=== PATIENT | male | born 1955 | race Caucasian/White ===

== ENCOUNTER 2019-07-09 17:05 | Observation (INO) ==
[2019-07-09] MEDS ORDERED: NS 1,000 ML IV ONE (17:57)
[2019-07-09] MEDS ORDERED: ASPIRIN PO ONE (17:57)
--- NOTE | 2019-07-09 18:06 | Diag Imaging Result Doc PS360 ---
EXAM: CT HEAD W/O CONTRAST INDICATION: stroke like symptoms TECHNIQUE: This exam was performed using automated exposure control, adjustment of mA or kV according to patient size, and/or use of iterative reconstruction technique. COMPARISON: None. FINDINGS: There is patchy low attenuation in the periventricular and subcortical white matter suggesting moderate microangiopathy most likely. There is no definite acute infarct given the limited sensitivity of CT versus MRI. There is no discrete intracranial mass, mass effect, or intracranial hemorrhage. The surrounding soft tissues and bony structures are essentially unremarkable. IMPRESSION: Suggestion of moderate white matter microangiopathy. No definite acute intracranial pathology by CT. Electronically signed by Abel Alfred 07/09/2019 6:03 PM
[2019-07-09] MEDS ORDERED: TYLENOL PO PRN (18:23)
[2019-07-09] MEDS ORDERED: ZOFRAN IV PRN (18:23)
[2019-07-09] MEDS ORDERED: NS 1,000 ML IV SCH (18:30)
[2019-07-09 18:44] LABS: URINE SOURCE CLEAN CATCH
--- NOTE | 2019-07-09 18:45 | PROVIDER DOCUMENTATION ---
This chart was entered by Vangie Hunt Scribe, acting as scribe for Krishna Blank MD. HPI-General Adult - General Chief Complaint: Numbness Stated Complaint: LEFT ARM, FACIAL NUMBNESS Time Seen by Provider: 07/09/19 17:21 Source: patient Allergies/Adverse Reactions: Patient Allergies Allergy/AdvReac Type Severity Reaction Status Date / Time No Known Allergies Allergy Verified 06/08/16 13:32 Home Medications: Home Medication List Medication Instructions Recorded Confirmed Last Taken Type Albuterol Sulfate [Proair Hfa] 1 puff PO PRN PRN 06/08/16 07/09/19 06/09/16 07:00 History Atorvastatin Calcium [Lipitor] 20 mg PO HS 06/08/16 07/09/19 06/09/16 20:00 History Fluticasone/Salmeterol [Advair 1 each IH BID 06/08/16 07/09/19 06/09/16 20:30 History 500-50 Diskus] Lisinopril 10 mg PO DAILY 06/08/16 07/09/19 06/09/16 08:00 History Omeprazole [Prilosec] 40 mg PO HS 06/08/16 07/09/19 06/08/16 20:00 History Ropinirole [Requip] 0.25 mg PO HS 06/08/16 07/09/19 06/09/16 20:00 History Tizanidine HCl [Zanaflex] 4 mg PO HS 06/08/16 07/09/19 06/09/16 20:00 History - History of Present Illness -Gen Adult Nature of Presenting Problems: pt is a 63 yr old female presenting with complaint of improved numbness/tingling to left arm, left face, pt reports onset last night with tingling to left arm, left hand, progressed to numbness of left arm and hand and tingling numbness to left face, pt reports tingling and loss of taste to left tongue. pt reports all numbness has resolved but tingling remains to left side of tongue and left arm/hand. pt denies any chest pain, shortness of breath, no headache or other complaints Location of Pain/Injury: reports: face (left face), upper extremity (left arm) Pain Radiation: reports: no radiation Quality of Pain: reports: other (tingling) Severity: reports: moderate Timing: reports: improving Context/Activities at Onset: reports: light activity Modifying Factors: improves with: nothing Associated Symptoms: denies: back/neck pain, chest pain, dizziness, fever/chills, headaches, nausea, shortness of breath, weakness, trouble walking Similar Symptoms Previously?: No Recently seen or treated by another doctor?: No Review of Systems - Adult - REVIEW OF SYSTEMS - ADULT Constitutional: reports: no symptoms reported Eyes: denies: blurred vision, double vision Ears, Nose, Mouth & Throat: reports: no symptoms reported Cardiovascular: denies: chest pain, palpitations, syncope Respiratory: denies: cough, shortness of breath Gastrointestinal: denies: abdominal pain, nausea, vomiting Genitourinary: reports: no symptoms reported Musculoskeletal: denies: back pain, joint pain, neck pain Integumentary: reports: no symptoms reported Neurological: reports: numbness (left arm/hand, left face, tongue). denies: dizziness/vertigo, headache/migraines, slurred speech Psychiatric: reports: no symptoms reported Endocrine: reports: no symptoms reported Hematologic/Lymphatic: reports: no symptoms reported Allergic/Immunologic: reports: no symptoms reported All Other Systems: Reviewed and Negative Past History - Adult - PAST MEDICAL HISTORY-ADULT Review of Records: reports: Old Records Reviewed, Nursing Assessment Review, Medications Reviewed, Social history reviewed & non-contributory. Major Childhood Illnesses: reports: denies history Cardiovascular: reports: denies history Respiratory: reports: denies history Gastrointestinal: reports: denies history Obstetrical/Gynecological: reports: denies history Genitourinary: reports: denies history Musculoskeletal: reports: denies history Neurological: reports: denies history Endocrine/Immune: reports: denies history Other Conditions: reports: denies history - IMMUNIZATION STATUS Childhood Immunizations: See Nurse Assessment Flu Vaccine: See Nurse Assessment - FAMILY HISTORY Family History: reviewed, not pertinent - SOCIAL HISTORY Smoking: quit greater than 1 year Substance Use: denies Living Situation: family Physical Exam-General - PHYSICAL EXAM-ADULT Initial Vital Signs Reviewed: Yes - CONSTITUTIONAL General Appearance: appears well, alert, no apparent distress - EYES Eyes: PERRL/EOMI - HEAD, EARS, NOSE, MOUTH & THROAT HENMT: normocephalic/atraumatic, moist mucous membranes, normal ENT inspection, pharynx normal - NECK Neck: non-tender, full range of motion, supple, normal inspection - RESPIRATORY Respiratory: chest non-tender, lungs clear, normal breath sounds, no respiratory distress, no accessory muscle use - CARDIOVASCULAR Cardiovascular: normal peripheral pulses, regular rate, rhythm, no edema - GASTROINTESTINAL (ABDOMEN) Abdominal Exam: normal bowel sounds, non tender, soft - LYMPHATIC Lymphatic: no adenopathy - MUSCULOSKELETAL Back Exam: normal inspection, no CVA tenderness, no vertebral tenderness Extremity: normal range of motion, non-tender, normal gait, normal inspection - SKIN Integumentary: normal color, normal turgor, warm/dry - NEUROLOGIC Neurologic: grossly normal, no motor/sensory deficits. negative: facial droop, focal weakness, motor weakness, sensory deficit - PSYCHIATRIC Psych/Mental Status: normal mood/affect Progress - PLAN OF CARE/RESULTS Progress/Plan/Lab Results: Vital Signs - 8 hr 07/09/19 17:12 Temperature 97.1 F L Pulse Rate 68 Respiratory Rate 16 Blood Pressure 138/75 O2 Sat by Pulse Oximetry 96 Orders Category Date Time Status CT HEAD W/O CONTRAST [CT] Stat Exams 07/09/19 17:21 Taken - EKG 1 Time of EKG reading by physician:: 18:36 EKG Read and Signed by:: Krishna Blank EKG Interpretation (*Must complete 3 of following elements*): Abnormal (t wave abnormality-consider lateral ischemia) Rate: 61 Rhythm: sinus with fusion complexes [place]: normal QRS: other (fusion complexes) ID Interval: normal - CT/MRI 1 CT Study: Head Impression: Abnormal (Department of Imaging Patient: TOM OHARAADM Date: 07/09/19#: [id number] : 5ADM Status: [facility]#: [id number] Age/Sex: 63/MRoom/Bed: Loc: P.ED Ordering Physician: Krishna Blank MD Family Physician: Everardo Camacho MD Reason for Procedure: stroke like symptoms Signed EXAM: CT HEAD W/O CONTRAST INDICATION: stroke like symptoms TECHNIQUE: This exam was performed using automated exposure control, adjustment of mA or kV according to patient size, and/or use of iterative reconstruction technique. COMPARISON: None. FINDINGS: There is patchy low attenuation in the periventricular and subcortical white matter suggesting moderate microangiopathy most likely. There is no definite acute infarct given the limited sensitivity of CT versus MRI. There is no discrete intracranial mass, mass effect, or intracranial hemorrhage. The surrounding soft tissues and bony structures are essentially unremarkable. IMPRESSION: Suggestion of moderate white matter microangiopathy. No definite acute intracranial pathology by CT. Electronically signed by Tom Alfred 07/09/2019 6:03 PM 07/09/191802 Interpreting Physician: Tom Alfred MD Dictated Date/Time: 07/09/191801 cc: Krishna Blank MD; Everardo Camacho MD) Comparison with other Films: no prior study - CONSULTS/PCP/HOSPITALIST Notification #1 *Consult/PCP/Hospitalist*: DR CAMACHO Time Discussed: 18:05 Consult Disposition: Admit Departure - Departure Date of Disposition Decision: 07/09/19 Time of Disposition Decision: 18:44 DIAGNOSIS: Ischemic stroke Disposition: ADMITTED INPATIENT 09 Certified Medical Emergency: Emergent Condition: Stable Referrals and Follow-Ups: Everardo Camacho MD [Primary Care Provider] - - Critical Care Note This patient required my direct & personal management of CC.: No Attestation - Physician/ FROYLAN Attestation Patient care was provided by Advanced Practice Provider:: No The physician spent face to face time with patient:: Yes Advanced Practice Provider documentation review:: Supervising physician onsite and consulted in the evaluation and care of this patient. The physician did have a face to face encounter with the patient. - NIH Stroke Scale NIH Type: Initial Evaluation Level of Consciousness: 0-Alert LOC Questions (ask month and age): 0-Answers Both Correctly LOC Commands (ask to open & close eyes;make a fist, let go): 0-Obeys Both Correctly Best Gaze (horizontal eye movement): 0-Normal Visual (use finger movement, counting or visual threat): 0-No Visual Loss Facial Palsy (show teeth or raise eyebrows & close eyes tght: 0-Symmetrical Movement Motor Function-left arm: 0-Normal Motor Function-right arm: 0-Normal Motor Function-left le-Normal Motor Function-right le-Normal Limb Ataxia(zonkbb-[id number]-kptnzb, or heel to [place]ile): 1-Present in one limb Sensory(pin prick to face,arms,trunk,legs-compare side/side): 1-Mild to Moderate Decrease in Sensation Best Language(name item/read sentence.Ex-Down to Earth): 0-No Aphasia Dysarthria(Pt read words or say words Ex.Mama,Tip-Top,Thanks: 0-Normal Articulation Extinction and Inattention: 0-Normal NIH Scale Untestable Comment: 1 Modified Kimball Score Criteria: 1-no significant disability despite symptoms This chart was documented by the indicated scribe, (Vangie Hunt, Scribe) and accurately reflects the services I performed and decisions made by me, Krishna Blank MD, as attested by the provider's signature.
[2019-07-09 18:46] LABS: BILIRUBIN URINE NEGATIVE (NEGATIVE); BLOOD URINE NEGATIVE (NEGATIVE); COLOR YELLOW; GLUCOSE URINE NEGATIVE (NEGATIVE); KETONE URINE NEGATIVE (NEGATIVE); LEUKOCYTES URINE NEGATIVE (NEGATIVE); NITRITE URINE NEGATIVE (NEGATIVE); PROTEIN URINE TRACE mg/dL (NEGATIVE); SP GRAVITY URINE 1.028; TURBIDITY URINE CLEAR (CLEAR); UROBILINOGEN URINE 2 mg/dL (NORMAL)
[2019-07-09 18:48] LABS: BASO# 0.03 X1000 (0.0-0.2); BASO% 0.4 % (0.0-0.8); EOS# 0.24 X1000 (0.0-0.7); HEMATOCRIT 39.3 % (42.0-52.0); HEMOGLOBIN 12.4 g/dL (14.0-18.0); IMM GRAN# 0.04 X1000 (0.0-0.04); IMM GRAN% 0.5 % (0.0-0.5); LYMPH# 2.26 X1000 (1.2-3.4); LYMPH% 28.4 % (20.5-51.1); MCH 29.6 PG (27-31); MCHC 31.6 g/dL (33-37); MCV 93.8 FL (81-99); MONO# 0.54 X1000 (0.11-0.59); MONO% 6.8 % (1.7-9.3); MPV 9.9 FL (7.4-10.4); NEUT# 4.85 X1000 (1.4-6.5); NEUT% 60.9 % (42.2-75.2); PLT 303 X1000 (130-400); RBC 4.19 XMIL (4.7-6.1); RDW 13.5 % (11.5-14.5); UR EPITHELIAL CELLS <10 /HPF (<10); URINE BACTERIA NEGATIVE /HPF; URINE RBC <10 /HPF (<10); URINE WBC <10 /HPF (<10); WBC 7.96 X1000 (4.8-10.8)
--- NOTE | 2019-07-09 18:56 | HISTORY AND PHYSICAL ---
CHIEF COMPLAINT: Facial numbness. HISTORY OF PRESENT ILLNESS: Patient presented to the hospital complaining of left face numbness, left tongue tingling. States he is having some weakness and numbness in his left arm. All these symptoms started over 18 hours ago. His symptoms were worsening today and he came to the ER, although currently his symptoms are slightly improved. Denies any headaches, blurred vision. Denies any other focal weakness. Denies any confusion. ALLERGIES: No known drug allergies. MEDICATIONS: 1. Albuterol. 2. Lipitor 20. 3. Advair. 4. [place]. 5. Lisinopril 10. 6. Omeprazole 40. 7. Requip. 8. Hydrocodone. REVIEW OF SYSTEMS: As noted above, numbness to his left side of his face, tingling in left tip of his tongue. He did feel as though her earlier he had some speech slurring, although feels like it is back to normal now. He is having some tingling in the left side of his arm. Denies any symptoms in his left leg or in his right upper or lower extremities. Denies headaches, blurred vision, change in vision. Denies any confusion or disorientation. Denies any chest pain or palpitations. Denies any fevers, chills, cough, congestion. Denies any confusion. PAST MEDICAL HISTORY: Significant for hypertension, chronic pain, high cholesterol, COPD, restless leg. FAMILY HISTORY: Positive for high blood pressure. SOCIAL HISTORY: Patient no longer smokes. Did have a longstanding history of smoking. Does not drink or use illicit substances. PHYSICAL EXAMINATION: VITAL SIGNS: Reviewed. He is awake, alert, oriented. Temperature 97 degrees, pulse 68, respiratory 16, BP 138/75. GENERAL: Patient is pleasant, in no distress. HEENT: Normocephalic. NECK: Supple. CARDIOVASCULAR: Regular rate. No murmurs. CHEST: Clear, nonlabored. ABDOMEN: Soft, nondistended, nontender. EXTREMITIES: Moves all extremities. He has no focal weakness. NEUROLOGIC: He does have a mild facial droop on the left. Speech is normal. No slurring. Memory appears intact. He has good strength in all extremities. He is awake, alert, oriented. ASSESSMENT: 1. Acute cerebrovascular accident with left facial numbness and left upper extremity numbness. 2. Hypertension. 3. High cholesterol. 4. Chronic pain. 5. Chronic obstructive pulmonary disease. PLAN: We are going to admit patient to the hospital. Currently, his labs are pending. We will follow up on these. We will admit him to the hospital, check carotid ultrasound, and echocardiogram. Follow his blood pressures and his labs. If they are normal, hopefully can discharge home tomorrow. cc: Everardo Camacho MD
[2019-07-09 18:57] LABS: INR 0.88; PROTIME 12.4 Seconds (11.0-16.0)
[2019-07-09 18:58] LABS: PTT 29.7 Seconds (22.3-41.8)
[2019-07-09 19:06] LABS: AGAP 10; ALBUMIN 4.2 g/dL (3.5-5.0); ALKALINE PHOSPHATASE 88 U/L (32-122); BUN 17 mg/dL (8-22); CHLORIDE 102 mmol/L (98-107); COSMO 279; CREATININE 0.9 mg/dL (0.7-1.2); ESTIMATED GFR > 60; GLUCOSE 99 mg/dL (70-104); GOT 18 U/L (10-34); GPT 16 U/L (10-44); POTASSIUM 4.1 mmol/L (3.5-5.1); SODIUM 139 mmol/L (136-145); TCO2 27 mmol/L (25-35); TOTAL PROTEIN 7.1 g/dL (6.3-8.3)
[2019-07-10 04:17] VITALS: BP 165/95
--- NOTE | 2019-07-10 05:46 | EKG Report ---
Test Performed on : 07/09/2019 6:36:33 PM Test Reason : STROKE Blood Pressure : / mmHG Vent. Rate : 061 BPM Atrial Rate : 061 BPM P-R Int : 146 ms QRS Dur : 084 ms QT Int : 436 ms P-R-T Axes : 051 027 123 degrees QTc Int : 438 ms Sinus rhythm. with fusion complexes T wave abnormality, consider lateral ischemia Abnormal ECG When compared with ECG of 08-JUN-2016 14:07, fusion complexes are now present Unconfirmed Result
[2019-07-10] MEDS ORDERED: ADVAIR 500/50 DISKUS INH SCH (08:00)
--- NOTE | 2019-07-10 08:03 | Vascular Study Report ---
EXAM: Carotid Ultrasound HISTORY: cva TECHNIQUE: Carotid Doppler ultrasound COMPARISON: None. FINDINGS: Right: Noncalcified plaque in the distal common carotid artery. This extends into the bulb. Peak systolic velocity in the internal carotid arteries 117 cm/s. The ICA/CCA ratio is 1.20. Antegrade vertebral flow. Left: Noncalcified plaque in the mid and distal common carotid artery. There is plaque in the carotid bulb. There This is calcified. Peak systolic velocity in the internal carotid arteries 169 cm/s. The ICA/CCA ratio is 1.42. Antegrade vertebral flow. IMPRESSION: 1.Stenosis in the distal right common carotid artery and proximal internal carotid artery of less than 40% 2.Stenosis between 60 and 80% in the proximal left internal carotid artery 3.Stenosis in the distal left common carotid artery of under 40% Electronically signed by Betito Kumari 07/10/2019 8:00 AM
[2019-07-10] MEDS ORDERED: PRINIVIL PO SCH (09:00)
--- NOTE | 2019-07-10 09:41 | Diag Imaging Result Doc PS360 ---
EXAM: MRI BRAIN W/O CONTRAST HISTORY: cva TECHNIQUE: MRI brain without contrast. Axial, sagittal, and coronal images obtained in sequences. COMPARISON: CT from 07/09/2019 FINDINGS: Increased signal in the right thalamus on the diffusion images consistent with a recent lacunar infarct. There are chronic microvascular ischemic changes. Old left parietal lacunar infarct. No mass or midline shift. No hydrocephalus. No epidural or subdural fluid collection. Normal orbits. No sinus opacification. IMPRESSION: Recent right thalamic lacunar infarct. Electronically signed by Betito Kumari 07/10/2019 9:38 AM
--- NOTE | 2019-07-10 15:16 | ECHO REPORT ---
ORDER DATE: 07/10/2019 MEASUREMENTS: Septal thickness 1.35, left ventricular internal diameter in diastole 5.7, posterior wall thickness 1.33, left ventricular internal diameter systole 3.5, aortic root 3.8, left atrium 4.5. SUMMARY: 1. Fair quality study. 2. Aortic valve is trileaflet and opens normally on 2-dimensional images. Peak gradient across aortic valve is approximately 10 mmHg. Mitral, tricuspid and pulmonic valves are without evidence of structural abnormality with trace tricuspid regurgitation and trace pulmonic insufficiency. Aortic root is normal in size. 3. Normal left chamber size with mild concentric left hypertrophy is demonstrated. Estimated left ejection fraction appears to be at least 65%. No regional wall motion abnormalities evident. Left atrium is mildly enlarged. Right atrium and right ventricle are normal in size with normal right ventricular systolic function. 4. No pericardial effusion. 5. Appearance of inferior vena cava suggests normal central venous pressure. CONCLUSIONS: 1. No significant valvular abnormality evident. 2. Mild concentric left hypertrophy with estimated left ejection fraction at least 65%. 3. Mild left atrial enlargement. cc: MD Everardo Fried MD
[2019-07-10] MEDS ORDERED: REQUIP PO SCH (21:00)
[2019-07-10] MEDS ORDERED: PRILOSEC PO SCH (21:00)
[2019-07-10] MEDS ORDERED: ZANAFLEX PO SCH (21:00)
[2019-07-10] MEDS ORDERED: LIPITOR PO SCH (21:00)
--- NOTE | 2019-07-11 07:15 | DISCHARGE SUMMARY ---
ADMISSION DATE: 07/09/2019 DISCHARGE DATE: 07/10/2019 DISCHARGE ADDENDUM: Patient seen and examined by myself. Full note dictated and discussed with nurse practitioner. Patient presented to the hospital with facial numbness and tingling of his tongue, and his left arm. His facial numbness is improved. He is still having tingling of his left arm. The patient's carotid and echo have been performed and were okay. MRI has just been performed. The patient overall is in no distress. We are going to discharge him home. He will continue treating his blood pressure and continue his cholesterol medication at home. cc: Everardo Camacho MD
--- NOTE | 2019-07-11 14:56 | DISCHARGE SUMMARY ---
ADMISSION DATE: 07/09/2019 DISCHARGE DATE: 07/10/2019 PRIMARY CARE PHYSICIAN: Dr. Everardo Camacho ADMISSION DIAGNOSES: 1. Acute cerebrovascular accident with left facial numbness and left upper extremity numbness. 2. Hypertension. 3. High cholesterol. 4. Chronic pain. 5. Chronic obstructive pulmonary disease. DISCHARGE DIAGNOSES: 1. Right thalamic lacunar infarct. 2. Hypertension. 3. High cholesterol. 4. Chronic pain. 5. Chronic obstructive pulmonary disease. HOSPITAL COURSE: Mr. Aleman presented to the emergency room complaining of left facial numbness, left tongue tingling, and some weakness in his left arm that started about 18 hours prior to coming to the ER. He stated that they had gotten worse through the day, prompting his visit to the ER. Through the hospitalization symptoms improved. He today he states the facial numbness and tongue tingling have improved. He still has the tingling to his left arm. DIAGNOSTICS: 1. CT of the head without contrast, suggestion of moderate white matter microangiopathy with no definite acute intracranial pathology by CT. 2. Brain MRI, right recent right thalamic lacunar infarct. 3. Bilateral carotid Doppler, stenosis in the distal right common carotid artery and proximal internal carotid artery less than 40%. Stenosis between 60% and 80% in the proximal left internal carotid artery. Stenosis in the distal left common carotid artery of under 40%. 4. Echocardiogram, no significant valvular abnormality, mild concentric left hypertrophy with estimated ejection fraction at least 65%. Mild left atrial enlargement. DISCHARGE MEDICATIONS: 1. Zanaflex 4 mg p.o. at bedtime. 2. Requip 0.25 p.o. at bedtime. 3. Omeprazole 40 mg p.o. at bedtime. 4. Lisinopril 10 mg p.o. daily. 5. Advair 50/500, 1 inhalation b.i.d. 6. Lipitor 20 mg p.o. at bedtime. 7. ProAir inhaler 1 puff p.o. p.r.n. shortness of breath. FOLLOW-UP INSTRUCTIONS: Dr. Everardo Camacho, he needs to call to schedule an appointment to be seen in 1 to 2 weeks. He has been instructed to call to be seen sooner or return to the ER for any syncope, dizziness, chest pain, palpitations, increasing tingling or weakness of extremities, any shortness of breath, PND, orthopnea, chest pain, palpitations, temperature greater than 101, any nausea, vomiting, diarrhea, constipation, black or bloody vomitus or stools, any hematuria, dysuria, frequency, urgency or for any questions or concerns that he may have. DISPOSITION: He is being discharged home in stable condition with family members. TIME SPENT: This is a greater than 30 minute discharge. Dictated by IKE Oliveros for Everardo Camacho MD cc: IKE Oliveros MD
== END 2019-07-10 11:25 | disposition home or self-care (01) ==
LOC: P.MEDSURG 17:05 → P.ED 17:05
PROVIDERS: ATTEND Family Medicine